=== PATIENT | male | born 2000 | race African-American/Black ===

== ENCOUNTER 2019-04-14 05:50 | Emergency (ER) | payer BC ==
[~2019-04-14] VITALS: Ht 172.7 cm; Wt 68.0 kg
[~2019-04-14 05:50] MED LIST: AUGMENTIN 875875 MG PO; IBUPROFEN 600600 M1 PO; KEFLEX500 MG PO; MAGIC MOUTHWASH SWISH&SPIT; NOHOMEMEDICATIONS
[2019-04-14 06:50] LABS: ABSOLUTE NEUTROPHILS 2.1 thou/uL (1.4-8.2); BASOPHILS 0.7 % (0.0-2.0); EOSINOPHILS 1.2 % (0.0-3.0); HEMATOCRIT 42.8 % (42.0-52.0); HEMOGLOBIN 13.7 gm/dL (14.0-18.0); LYMPHOCYTES 53.7 % (24.0-44.0); MCH 27.8 pg (26.0-34.0); MCHC 32.1 g/dL (28.0-37.0); MCV 86.8 fL (80.0-100.0); MONOCYTES 6.9 % (1.0-8.0); PLATELET COUNT 163 thou/uL (150-400); POLYS 37.5 % (36.0-66.0); RBC 4.94 mil/uL (4.50-6.00); RDW 15.4 % (10.5-14.5); WBC 5.7 thou/uL (4.0-11.0)
[2019-04-14 06:52] LABS: CALCIUM 9.2 mg/dL (8.5-10.1); POTASSIUM 3.7 mmol/L (3.5-5.1)
[2019-04-14 08:00] VITALS: BP 101/66
== END 2019-04-14 08:16 | disposition short-term general hospital (02) ==
LOC: ER 05:50
PROVIDERS: Emergency Medicine Emergency Medical Services
DX: N44.00 Torsion of testis, unspecified (principal); R11.2 Nausea with vomiting, unspecified; Z88.2 Allergy status to sulfonamides; Z88.6 Allergy status to analgesic agent